=== PATIENT | female | born 2000 | race Hispanic/Latino ===

== ENCOUNTER 2022-06-16 18:59 | Emergency (ER) | payer MEDICAID ==
[~2022-06-16] VITALS: Ht 162.6 cm; Wt 122.5 kg
[2022-06-16 19:01] VITALS: BP 117/75
[2022-06-17] MEDS ORDERED: IBUP-2070 PO (02:02)
== END 2022-06-17 02:24 | disposition home or self-care (01) ==
LOC: EDH 18:59
DX: M25.511 Pain in right shoulder (principal); Z98.890 Other specified postprocedural states
CPT/HCPCS: 73030